=== PATIENT | female | born 1980 | race Asian ===

== ENCOUNTER 2017-08-05 19:24 | Inpatient (IN) | payer MEDICAID ==
[2017-08-05 19:55] LABS: ADD MAN DIFF? NO
[2017-08-05] MEDS ORDERED: OXYTOCIN 30 UNITS/LR 500 ML IV ×2 (20:00)
[2017-08-05] MEDS ORDERED: METHYLERGONOVINE 0.2 MG INJ IM (20:00)
[2017-08-05] MEDS ORDERED: CARBOPROST 250 MCG INJ IM (20:00)
[2017-08-05] MEDS ORDERED: MISOPROSTOL 200 MCG TAB PR (20:00)
[2017-08-05] MEDS ORDERED: LIDOCAINE 1% (MPF) 30 ML INJ INJ (20:00)
[2017-08-05 20:04] LABS: WHITE BLOOD COUNT 5.9 10^3/ul (4.8-10.8)
[2017-08-05 20:04] LABS: BASOPHILS % 0.3 % (0.0-2.0); EOSINOPHILS # 0.1 10^3/ul (0.0-0.5); HEMATOCRIT 36.1 % (37.0-47.0); HEMOGLOBIN 12.2 g/dl (12.0-16.0); LYMPHOCYTES # 1.4 10^3/ul (0.8-2.9); LYMPHOCYTES % 22.8 % (15.0-51.0); MEAN CORPUSCULAR HEMOGLOBIN 30.2 pg (29.0-33.0); MEAN CORPUSCULAR HGB CONC 33.8 g/dl (32.0-37.0); MEAN CORPUSCULAR VOLUME 89.4 fl (82.0-101.0); MEAN PLATELET VOLUME 10.5 fl (7.4-10.4); MONOCYTE # 0.5 10^3/ul (0.3-0.9); MONOCYTES % 8.1 % (0.0-11.0); NEUTROPHILS % 67.1 % (39.0-77.0); PLATELET COUNT 222 10^3/UL (140-415); RED BLOOD COUNT 4.04 10^6/ul (4.20-5.40); RED CELL DISTRIBUTION WIDTH 13.6 % (11.5-14.5)
[2017-08-05] MEDS: AMPICILLIN 2 GM/NS (PMX) 100 ML IV (20:04)
[2017-08-05] MEDS: SOD CHLORIDE 0.9% 1,000 ML IV ×2 (20:04→23:25)
[2017-08-05 20:19] LABS: INR 0.87; PROTIME 11.9 Sec (11.9-14.9); PT RATIO 0.9
[2017-08-05] MEDS: OXYTOCIN 30 UNITS/LR 500 ML IV (20:23)
[2017-08-05 20:56] LABS: HEPATITIS B SURFACE ANTIGEN NEGATIVE (NEGATIVE)
[2017-08-05] MEDS ORDERED: FENTAnyl 2MCG/ML-ROPIV 0.2% 100 ML (23:50)
[2017-08-06] MEDS: SOD CHLORIDE 0.9% 1,000 ML IV (02:37)
[2017-08-06] MEDS ORDERED: EPHEDrine SULFATE 50 MG/5 ML SYG (03:02)
[2017-08-06] MEDS: EPHEDrine SULFATE 50 MG/5 ML SYG IV ×3 (03:18→04:32)
[2017-08-06] MEDS: AMPICILLIN 1 GM/NS (PMX) 50 ML IV ×3 (04:00→08:08)
[2017-08-06] MEDS: ONDANSETRON 4 MG INJ IV (06:27)
[2017-08-06] MEDS ORDERED: NALOXONE (0.4 MG/ML) INJ IV (06:30)
[2017-08-06] MEDS ORDERED: DIPHENHYDRAMINE 50 MG INJ IV (06:30)
[2017-08-06] MEDS: LACTATED RINGER'S 1,000 ML IV (08:08)
[2017-08-06] MEDS: FENTAnyl 2MCG/ML-ROPIV 0.2% 100 ML BAG EPI (09:01)
[2017-08-06] MEDS: OXYTOCIN 30 UNITS/LR 500 ML IV ×2 (10:30→14:54)
[2017-08-06] MEDS: IBUPROFEN 600 MG TAB PO ×2 (12:10→18:26)
[2017-08-06] MEDS ORDERED: CARBOPROST 250 MCG INJ IM (14:00)
[2017-08-06] MEDS ORDERED: OXYCODONE/ASPIRIN (4.88/325) TAB PO ×2 (14:00)
[2017-08-06] MEDS ORDERED: MISOPROSTOL 200 MCG TAB PR (14:00)
[2017-08-06] MEDS ORDERED: OXYTOCIN 30 UNITS/LR 500 ML IV (14:00)
[2017-08-06] MEDS ORDERED: ZOLPIDEM 5 MG TAB PO (14:00)
[2017-08-06] MEDS ORDERED: METHYLERGONOVINE 0.2 MG INJ IM (14:00)
[2017-08-06 15:11] LABS: RAPID PLASMA REAGIN NONREACTIVE (NR)
[2017-08-06] MEDS: BENZOCAINE 20% 56 ML SPRAY TOP (15:27)
[2017-08-06] MEDS: WITCH HAZEL/GLYCERIN PAD PR (15:27)
[2017-08-06] MEDS: LANOLIN 7 GM TUBE TOP (15:28)
[2017-08-07] MEDS: IBUPROFEN 600 MG TAB PO ×4 (00:40→16:20)
[2017-08-07] MEDS: SENNA/DOCUSATE NA (8.6MG/50MG) TAB PO ×3 (00:40→21:00)
[2017-08-07 11:18] LABS: ADD MAN DIFF? NO
[2017-08-07 11:21] LABS: WHITE BLOOD COUNT 7.2 10^3/ul (4.8-10.8)
[2017-08-07 11:21] LABS: BASOPHILS % 0.3 % (0.0-2.0); EOSINOPHILS # 0.1 10^3/ul (0.0-0.5); EOSINOPHILS % 1.7 % (0.0-7.0); HEMATOCRIT 28.4 % (37.0-47.0); HEMOGLOBIN 9.5 g/dl (12.0-16.0); LYMPHOCYTES # 1.1 10^3/ul (0.8-2.9); LYMPHOCYTES % 15.7 % (15.0-51.0); MEAN CORPUSCULAR HEMOGLOBIN 30.3 pg (29.0-33.0); MEAN CORPUSCULAR HGB CONC 33.5 g/dl (32.0-37.0); MEAN CORPUSCULAR VOLUME 90.4 fl (82.0-101.0); MEAN PLATELET VOLUME 10.2 fl (7.4-10.4); MONOCYTE # 0.3 10^3/ul (0.3-0.9); MONOCYTES % 4.6 % (0.0-11.0); NEUTROPHIL # 5.5 10^3/ul (1.6-7.5); PLATELET COUNT 172 10^3/UL (140-415); RED BLOOD COUNT 3.14 10^6/ul (4.20-5.40); RED CELL DISTRIBUTION WIDTH 14.2 % (11.5-14.5)
[2017-08-08] MEDS: IBUPROFEN 600 MG TAB PO ×4 (04:22→17:48)
[2017-08-08] MEDS: SENNA/DOCUSATE NA (8.6MG/50MG) TAB PO (08:52)
[2017-08-08] MEDS: DIPHTH/TET/ACEL PERTUSS (ADULT) 0.5 ML VIAL IM* (16:27)
[2017-08-08] MEDS: WITCH HAZEL/GLYCERIN PAD PR (17:49)
[2017-08-08] MEDS: BENZOCAINE 20% 56 ML SPRAY TOP (17:49)
== END 2017-08-08 19:00 | disposition home or self-care (01) | DRG 775 ==
LOC: L-D 08-06 10:47 → PP1 08-06 13:23 → L-D 19:24 → PP1 08-06 15:04
PROVIDERS: Obstetrics & Gynecology
PROC: 10E0XZZ Delivery of Products of Conception, External Approach (ICD-10-PCS; principal; 2017-08-06)
PROC: 0KQM0ZZ Repair Perineum Muscle, Open Approach (ICD-10-PCS; 2017-08-06)
PROC: 3E033VJ Introduction of Other Hormone into Peripheral Vein, Percutaneous Approach (ICD-10-PCS; 2017-08-06)
DX: O48.0 Post-term pregnancy (principal); O70.1 Second degree perineal laceration during delivery; Z3A.40 40 weeks gestation of pregnancy; Z37.0 Single live birth
CPT/HCPCS: 62319; 85025; 85610; 85730; 86592; 86900; 86901; 87340; 90715